=== PATIENT | female | born 1930 | race Caucasian/White ===

== ENCOUNTER → 2017-03-23 | Outpatient (CLI) | payer MEDICARE, OTHER ==
[~2017-03-23] MED LIST: ALEVE 220MG220 MG PO; ALEVE220 MG PO; ANTIBIOTIC; ASPIRIN 32325 MG/TA1 PO; ASPIRIN 32325 MG/TAB PO; ASPIRIN 81M81 MG/TA2 PO; BUFFERED ASPIR325 M2 PO; CELEBREX 200MG200 MG PO; EPA FISH OIL1000 MG PO; FERROUS SU325 MG/TAB PO; FISH OIL1000 MG PO; FOLIC ACID0.4 MG PO; IRON TABLETS325 MG PO; KLONOPIN 1MG1 MG PO; MICARDIS40 MG PO; NORCO 325 MG-51 TAB PO; NORCO 325 MG-7.1 TAB PO; RESTORIL30 MG PO; ROXICODONE 55 MG/TAB PO; TEGRETOL200 MG PO; TYLENOL W/COD1 UDTAB PO; ULTRAM 50MG TAB50 MG PO; VITAMIN B-12100 MCG PO; VITAMIN B12100 MCG PO; VITAMIN C500 MG PO
== END ==
LOC: COL.VAS 12:30
DX: G45.9 Transient cerebral ischemic attack, unspecified (principal); G45.1 Carotid artery syndrome (hemispheric)

== ENCOUNTER → 2018-04-26 | Outpatient (CLI) | payer MEDICARE, OTHER ==
[~2018-04-26] VITALS: Ht 167.6 cm; Wt 61.3 kg
[~2018-04-26] MED LIST changes: +ASPIRIN E.C. 8181 MG PO
[2018-04-26 13:09] VITALS: BP 182/97; PULSE 59
[2018-04-26 14:15] VITALS: BP 185/95; PULSE 94
== END ==
LOC: COL.RAD 12:46
DX: M51.26 Other intervertebral disc displacement, lumbar region (principal)
CPT/HCPCS: J3301

== ENCOUNTER → 2018-05-15 | Outpatient (CLI) | payer MEDICARE, OTHER ==
[~2018-05-15] VITALS: Ht 167.6 cm; Wt 61.4 kg
[2018-05-15 14:00] VITALS: BP 186/96; PULSE 53
[2018-05-15 14:45] VITALS: BP 193/98; PULSE 57
== END ==
LOC: COL.RAD 13:19
DX: M51.26 Other intervertebral disc displacement, lumbar region (principal)
CPT/HCPCS: J3301

== ENCOUNTER 2018-07-14 18:54 | Emergency (ER) | payer MEDICARE, OTHER ==
[~2018-07-14] VITALS: Ht 167.6 cm; Wt 59.1 kg
[2018-07-14 19:00] VITALS: BP 214/98; TEMP 97
[2018-07-14 20:55] LABS: BASO % 0.4 % (0.0-2.0); EOS % 0.4 % (0-4.0); GRAN # 6.2 (1.4-6.5); GRAN % 76.5 % (42.2-75.2); HEMOGLOBIN 12.7 g/dl (12.5-16.0); MEAN CELL VOLUME 89 fl (80.0-100.0); MEAN CORPUSCULAR HEMOGLOBIN 31 pg (27.0-31.0); MEAN CORPUSCULAR HGB CONC 35 g/dl (33.0-37.0); MEAN PLATELET VOLUME 10.2 fl (7.4-10.4); MONO # 0.8 (0.1-0.6); MONO % 10.3 % (1.7-9.3); PLATELET COUNT 184 K/mm3 (130-400); RED BLOOD COUNT 4.14 M/mm3 (4.10-5.30); REDCELL DISTRIBUTION WIDTH-CV 12.2 % (11.5-14.5)
[2018-07-14 20:56] LABS: HEMATOCRIT 36.7 % (37.0-47.0)
[2018-07-14 21:06] LABS: ALBUMIN 4.2 gm/dL (3.5-5.0); BILIRUBIN,TOTAL 0.9 mg/dL (0.0-1.0); C-REACTIVE PROTEIN 0.6 mg/dL (0.0-0.9); CALCIUM 9.2 mg/dL (8.4-10.2); CREATININE, serum 0.54 mg/dL (0.52-1.25); POTASSIUM 3.6 mmol/L (3.4-5.0); TOTAL PROTEIN 7.7 gm/dL (6.4-8.2)
[2018-07-14 21:18] LABS: COLLECTION METHOD CLEAN CATCH
[2018-07-14 21:47] LABS: PH 6 (5-8); URINE APPEARANCE Clear; URINE BACTERIA None Seen /hpf; URINE BILIRUBIN Negative (NEGATIVE); URINE BLOOD 1+ (NEGATIVE); URINE COLOR Straw; URINE GLUCOSE Negative (NEGATIVE); URINE KETONE Negative (NEGATIVE); URINE LEUKOCYTE ESTERASE 2+ (NEGATIVE); URINE NITRATE Negative (NEGATIVE); URINE PROTEIN(semi-quant) Negative (NEGATIVE); URINE RBC 0-2 /hpf; URINE UROBILINOGEN Negative (NEGATIVE)
[2018-07-14] MEDS ORDERED: DULCOLAX STOOL100 MG PO (21:58)
[2018-07-14 22:04] VITALS: PULSE 61
== END 2018-07-14 22:04 | disposition home or self-care (01) ==
LOC: COL.ER 18:54
PROVIDERS: Emergency Medicine
DX: K56.41 Fecal impaction (principal); F17.210 Nicotine dependence, cigarettes, uncomplicated; Z79.82 Long term (current) use of aspirin

== ENCOUNTER 2018-07-28 17:23 | Inpatient (IN) | payer MEDICARE, OTHER ==
[~2018-07-28] VITALS: Ht 167.6 cm; Wt 57.0 kg
[~2018-07-28 17:23] MED LIST changes: +DULCOLAX STOOL100 MG PO
[2018-07-28 18:35] LABS: COLLECTION METHOD CLEAN CATCH
[2018-07-28 18:38] LABS: BASO % 0.3 % (0.0-2.0); GRAN # 5.6 (1.4-6.5); GRAN % 86.6 % (42.2-75.2); HEMOGLOBIN 12.7 g/dl (12.5-16.0); LYMPH # 0.4 (1.2-3.4); LYMPH % 6.6 % (20.0-51.0); MEAN CELL VOLUME 87 fl (80.0-100.0); MEAN CORPUSCULAR HEMOGLOBIN 31 pg (27.0-31.0); MEAN CORPUSCULAR HGB CONC 35 g/dl (33.0-37.0); MEAN PLATELET VOLUME 9.2 fl (7.4-10.4); MONO # 0.4 (0.1-0.6); MONO % 6.3 % (1.7-9.3); PLATELET COUNT 214 K/mm3 (130-400); RED BLOOD COUNT 4.15 M/mm3 (4.10-5.30); REDCELL DISTRIBUTION WIDTH-CV 12.1 % (11.5-14.5)
[2018-07-28 18:42] LABS: HEMATOCRIT 36.1 % (37.0-47.0); MUCOUS Present /lpf; PH 7 (5-8); URINE APPEARANCE Cloudy; URINE BACTERIA Rare /hpf; URINE BILIRUBIN Negative (NEGATIVE); URINE BLOOD Negative (NEGATIVE); URINE COLOR Yellow; URINE GLUCOSE Negative (NEGATIVE); URINE KETONE 1+ (NEGATIVE); URINE LEUKOCYTE ESTERASE Trace (NEGATIVE); URINE NITRATE Negative (NEGATIVE); URINE PROTEIN(semi-quant) 1+ (NEGATIVE); URINE UROBILINOGEN Negative (NEGATIVE)
[2018-07-28 18:45] LABS: PROTHROMBIN TIME 11.1 SECONDS (9.7-12.8)
[2018-07-28 18:49] LABS: ALANINE AMINOTRANSFERASE 27 U/L (9-52); ALBUMIN 4.3 gm/dL (3.5-5.0); ALKALINE PHOSPHATASE 75 U/L (50-136); ANION GAP 10 mmol/L (7-16); AST,SGOT 24 U/L (15-37); BILIRUBIN,TOTAL 0.7 mg/dL (0.0-1.0); BLOOD UREA NITROGEN 9 mg/dL (7-17); CALCIUM 9.3 mg/dL (8.4-10.2); CARBON DIOXIDE 24 mmol/L (22-30); CREATININE, serum 0.59 mg/dL (0.52-1.25); GLUCOSE 130 mg/dL (74-106); LIPASE 109 U/L (23-300); SODIUM 123 mmol/L (137-145)
[2018-07-28 19:00] LABS: TROPONIN-I < 0.012 ng/mL (0.000-0.034)
[2018-07-28 19:01] LABS: CHLORIDE 88 mmol/L (98-107)
[2018-07-28] MEDS ORDERED: EPITOL (22:21)
[2018-07-28 23:48] LABS: MAGNESIUM 1.8 mg/dL (1.6-2.3)
[2018-07-29] MEDS ORDERED: TEGRETOL X200 MG/TA1 PO (00:25)
[2018-07-29 01:30] LABS: TSH w REFLEX 2.13 uIU/mL (0.465-4.680)
[2018-07-29 01:47] VITALS: BP 110/76; PULSE 47; TEMP 97.7
[2018-07-29 03:03] LABS: CALCIUM 8.4 mg/dL (8.4-10.2); CREATININE, serum 0.55 mg/dL (0.52-1.25); POTASSIUM 3.5 mmol/L (3.4-5.0)
[2018-07-29 07:22] LABS: BASO % 0.4 % (0.0-2.0); EOS % 0.4 % (0-4.0); GRAN # 3.6 (1.4-6.5); GRAN % 69.5 % (42.2-75.2); HEMATOCRIT 37.1 % (37.0-47.0); HEMOGLOBIN 12.6 g/dl (12.5-16.0); LYMPH % 18.3 % (20.0-51.0); MEAN CELL VOLUME 90 fl (80.0-100.0); MEAN CORPUSCULAR HEMOGLOBIN 30 pg (27.0-31.0); MEAN CORPUSCULAR HGB CONC 34 g/dl (33.0-37.0); MEAN PLATELET VOLUME 10.1 fl (7.4-10.4); MONO # 0.6 (0.1-0.6); MONO % 11.2 % (1.7-9.3); PLATELET COUNT 208 K/mm3 (130-400); RED BLOOD COUNT 4.14 M/mm3 (4.10-5.30); REDCELL DISTRIBUTION WIDTH-CV 12.3 % (11.5-14.5)
[2018-07-29 07:38] LABS: CALCIUM 8.9 mg/dL (8.4-10.2); CREATININE, serum 0.54 mg/dL (0.52-1.25); POTASSIUM 3.7 mmol/L (3.4-5.0)
[2018-07-29 08:24] VITALS: BP 182/75; PULSE 52; TEMP 98
[2018-07-29 11:30] VITALS: BP 195/76; PULSE 58; TEMP 98
[2018-07-29 16:33] VITALS: BP 179/75; PULSE 95; TEMP 97.8
[2018-07-29 19:20] VITALS: BP 163/69; PULSE 64; TEMP 97.7
[2018-07-30 00:11] VITALS: BP 150/64; PULSE 54; TEMP 98.1
[2018-07-30 05:48] VITALS: BP 212/95; PULSE 62; TEMP 97.4
[2018-07-30 08:07] VITALS: BP 143/70; PULSE 67; TEMP 98.6
[2018-07-30 08:26] VITALS: BP 151/76; PULSE 65; TEMP 98
[2018-07-30 13:26] LABS: CALCIUM 9.5 mg/dL (8.4-10.2); CREATININE, serum 0.54 mg/dL (0.52-1.25); POTASSIUM 3.4 mmol/L (3.4-5.0)
== END 2018-07-30 15:46 | disposition home or self-care (01) | DRG 392 ==
LOC: COL.ER 17:23 → MEDICAL 20:24 → EDBEDREQ 20:33 → EDBEDREQTM 20:33 → EDBEDREQ 20:55 → MEDICAL 07-30 15:46
PROVIDERS: Emergency Medicine; Hospitalist; Nurse Practitioner Family
DX: K52.9 Noninfective gastroenteritis and colitis, unspecified (principal); E87.1 Hypo-osmolality and hyponatremia; E86.9 Volume depletion, unspecified; I16.0 Hypertensive urgency; Z87.891 Personal history of nicotine dependence; E87.8 Other disorders of electrolyte and fluid balance, not elsewhere classified; G58.8 Other specified mononeuropathies
CPT/HCPCS: OP; 99222-AI; 99239; C9113; G0378; J0360; J1650; J2765; J7030; Q9967

== ENCOUNTER → 2019-10-15 | Outpatient (CLI) | payer MEDICARE, OTHER ==
[~2019-10-15] MED LIST changes: +EPITOL; +TEGRETOL X200 MG/TA1 PO
== END ==
LOC: COL.RAD 10:00
DX: E04.1 Nontoxic single thyroid nodule (principal); M19.011 Primary osteoarthritis, right shoulder; M19.012 Primary osteoarthritis, left shoulder; R07.89 Other chest pain
CPT/HCPCS: Q9967

== ENCOUNTER → 2019-10-25 | Outpatient (CLI) | payer MEDICARE, OTHER ==
[~2019-10-25] VITALS: Ht 167.6 cm; Wt 58.5 kg
[2019-10-25 12:23] VITALS: PULSE 62
== END ==
LOC: COL.RAD 11:15
DX: E04.1 Nontoxic single thyroid nodule (principal)
CPT/HCPCS: 32106

== ENCOUNTER 2020-05-18 21:39 | Inpatient (IN) | payer MEDICARE, OTHER ==
[~2020-05-18] VITALS: Ht 165.1 cm; Wt 58.4 kg
[2020-05-18 22:08] LABS: BASO # 0.1 (0.0-0.2); BASO % 0.5 % (0.0-2.0); EOS % 0.3 % (0-4.0); GRAN # 9.8 (1.4-6.5); GRAN % 88.3 % (42.2-75.2); HEMATOCRIT 37.7 % (37.0-47.0); HEMOGLOBIN 12.3 g/dl (12.5-16.0); LYMPH # 0.6 (1.2-3.4); LYMPH % 5.7 % (20.0-51.0); MEAN CELL VOLUME 89 fl (80.0-100.0); MEAN CORPUSCULAR HEMOGLOBIN 29 pg (27.0-31.0); MEAN CORPUSCULAR HGB CONC 33 g/dl (33.0-37.0); MEAN PLATELET VOLUME 10.3 fl (7.4-10.4); MONO # 0.5 (0.1-0.6); MONO % 4.8 % (1.7-9.3); PLATELET COUNT 199 K/mm3 (130-400); RED BLOOD COUNT 4.23 M/mm3 (4.10-5.30); REDCELL DISTRIBUTION WIDTH-CV 13.1 % (11.5-14.5)
[2020-05-18 22:12] LABS: PROTHROMBIN TIME 11.1 SECONDS (9.7-12.8)
[2020-05-18 22:15] LABS: PARTIAL THROMBOPLASTIN TIME 31.3 SECONDS (26.0-37.0)
[2020-05-18 22:19] LABS: COLLECTION METHOD CLEAN CATCH
[2020-05-18 22:20] LABS: ALANINE AMINOTRANSFERASE 13 U/L (4-34); ALBUMIN 4.3 gm/dL (3.5-5.0); ALKALINE PHOSPHATASE 99 U/L (50-136); ANION GAP 9 mmol/L (7-16); AST,SGOT 23 U/L (15-37); BILIRUBIN,TOTAL 1.2 mg/dL (0.0-1.0); BLOOD UREA NITROGEN 16 mg/dL (7-17); CALCIUM 9.4 mg/dL (8.4-10.2); CARBON DIOXIDE 24 mmol/L (22-30); CHLORIDE 101 mmol/L (98-107); GLUCOSE 136 mg/dL (74-106); LIPASE 160 U/L (23-300); POTASSIUM 4.2 mmol/L (3.4-5.0); SODIUM 134 mmol/L (137-145); TOTAL PROTEIN 8.7 gm/dL (6.4-8.2)
[2020-05-18 22:21] LABS: C-REACTIVE PROTEIN < 0.5 mg/dL (0.0-0.9)
[2020-05-18 22:27] LABS: ERYTHROCYTE SEDIMENTATION RATE 16 mm/hr (0-30)
[2020-05-18 22:27] LABS: MUCOUS Present /lpf; PH 7 (5-8); URINE APPEARANCE Hazy; URINE BACTERIA Rare /hpf; URINE BILIRUBIN Negative (NEGATIVE); URINE BLOOD 1+ (NEGATIVE); URINE COLOR Yellow; URINE GLUCOSE Negative (NEGATIVE); URINE KETONE Trace (NEGATIVE); URINE LEUKOCYTE ESTERASE 3+ (NEGATIVE); URINE NITRATE Negative (NEGATIVE); URINE PROTEIN(semi-quant) 1+ (NEGATIVE); URINE UROBILINOGEN Negative (NEGATIVE)
[2020-05-18 22:30] LABS: TROPONIN-I 0.029 ng/mL (0.000-0.035)
--- NOTE | 2020-05-18 23:45 | NUR ---
Received report from JUSTIN Burnett.
[2020-05-19] VITALS (497 sets, daily range): BP systolic 153–196; BP diastolic 86–127; PULSE 47–78; TEMP 97.8–98.6; O2SAT 88–100
--- NOTE | 2020-05-19 00:09 | NUR ---
Patient arrives to ICU room 5 via ED stretcher. Patient is able to ambulate with a walker and one-person assist to the ICU bed. Patient arrives wearing 2L via nasal cannula and satting 100% - she is also receiving nitroglycerine to a peripheral IV in the right wrist at 15 mcg/min or 4.5 mL/hr. Initial BP is 173/127; other vitals within normal limits. Patient denies the presence of chest pain, however, reports 10/10 left shoulder pain; she is unable to lift or extend the left arm without experiencing severe pain. No other complaints of discomfort noted. PRN roxicodone administered according to orders at 0122. BP at 0130 was 148/104. Oxygen weaned off at this time with saturation of 97% on room air. Jai aware of patient's arrival. Will continue to monitor.
[2020-05-19 04:24] LABS: BASO % 0.4 % (0.0-2.0); EOS % 0.3 % (0-4.0); GRAN # 5.3 (1.4-6.5); GRAN % 74.6 % (42.2-75.2); LYMPH # 1.1 (1.2-3.4); LYMPH % 15.8 % (20.0-51.0); MEAN CELL VOLUME 89 fl (80.0-100.0); MEAN CORPUSCULAR HEMOGLOBIN 29 pg (27.0-31.0); MEAN CORPUSCULAR HGB CONC 33 g/dl (33.0-37.0); MEAN PLATELET VOLUME 10.7 fl (7.4-10.4); MONO # 0.6 (0.1-0.6); MONO % 8.8 % (1.7-9.3); PLATELET COUNT 197 K/mm3 (130-400); RED BLOOD COUNT 3.75 M/mm3 (4.10-5.30)
[2020-05-19 04:25] LABS: HEMATOCRIT 33.4 % (37.0-47.0)
[2020-05-19 04:37] LABS: ALBUMIN 3.9 gm/dL (3.5-5.0); BILIRUBIN,TOTAL 1.1 mg/dL (0.0-1.0); CREATININE, serum 0.68 (0.52-1.25); TOTAL PROTEIN 7.8 gm/dL (6.4-8.2)
[2020-05-19 04:51] LABS: TROPONIN-I 6 HR POST INITIAL 0.551 ng/mL (0.000-0.034)
--- NOTE | 2020-05-19 05:02 | NUR ---
Notified Dr. Vergara of patient's upward trending and critical troponin. At this time, also notified Jai of Nitro drip on standby due to HR in the 50s, occasionally dipping to high 40s. Received orders to initiate low-dose heparin protocol and to notify cardiology in the AM with consult.
--- NOTE | 2020-05-19 08:20 | NUR ---
Called for cardiology consult.
--- NOTE | 2020-05-19 09:50 | NUR ---
at patient bedside. Will order stress test for tomorrow, needs to be NPO tonight at midnight. will add norvas to med list/ draw another troponin and aim to d/c nitro gtt.
--- NOTE | 2020-05-19 10:30 | NUR ---
at patient bedside. Once BP's stablize to sbp 160's and nitro gtt is off, can go upstairs. Putting in ortho consult for chronic shoulder pain.
--- NOTE | 2020-05-19 13:43 | NUR ---
Prison Guard met with patient to discuss discharge planning. Patient lives alone in [place] at [facility]. Patient states she has lived there about four years now. Patient states her two sons, Toby (ph#[phone]) and Nimesh (ph#[phone]) live locally. Patient states she has another son, Jefferson that lives in [place] and a daughter, Jaky that lives in [place]. Patient reports she also has a step son, Ron that lives in [place]. Patient states her son Nimesh is DPOA-HC but SW did not locate copy in EMR. Patient sees Dr. Barbosa for primary care and has medications delivered to her home from [facility]. Patient states she no longer drives. Patient has a cane and walker at home and also reports independence with ADLS. Patient states she plans to return home at discharge. KRISTIN contacted patient's son Nimesh at the above number but got a busy signal twice. KRISTIN contacted patient's other son, Toby who advised Nimesh is DPOA-HC but does not have a copy. Toby confirmed that the above number is Nimesh's number, but states Nimesh had a meeting this morning and possibly could not be reached. Toby states patient has been independent at home and that he and his go tow picker her groceries for her and check in on her as needed. KRISTIN contacted Dr. Barbosa's office and was advised they did not have copy of DPOA on file. KRISTIN will continue to follow.
--- NOTE | 2020-05-19 18:30 | NUR ---
Patient started complaining of chest pain that felt like jabbing in her left upper ribs. was notified and ordered a stat tropinin, EKG and gave SL nitro. Patients pain somewhat resolved and she described it has gas like cramps. Marlon read EKG and said patient can still go to medical floor.
--- NOTE | 2020-05-19 19:45 | NUR ---
Arrived to medical floor.
--- NOTE | 2020-05-19 20:05 | NUR ---
Patient brought up to room 351 on medical floor. JUSTIN Myers at bedside. Patient comfortable and no needs at this time.
--- NOTE | 2020-05-19 20:40 | NUR ---
Resting in bed. Assessment complete. Right base crackles otherwise clear. Heart sounds normal. Bowels active x4. Pulses present throughout. No edema noted. Heparin gtt infusing at 5.5ml/hr into right forearm without complications. Denies pain. Denies needs at this time. Call light in reach.
--- NOTE | 2020-05-19 21:40 | NUR ---
2140: Patient reporting severe left shoulder pain radiating to down left arm. Patient BP 190s/110s. Patient has PRN morphine. Will provide. Updated Dr. Mason at this time. Give morphine, no other orders. Clarified if Dr. Mason would like EKG or labs. No other orders. 2154: Morphine given by house supervisior. 0: Patient continues to have left shoulder/arm pain now guarding left chest stating pain has moved to left chest. States "I am dying, I am going to , help me, I am dying." 2216: Dr. Mason updated. Order for stat EKG placed and to call once complete. 2224: EKG complete. Dr. Mason updated. BP continues to be elevated. Dr. Mason aware. Orders for oral ativan 0.5mg now placed. 2229: House supervisior updated. 2234: Ativan given. 2250: Patient states "Let me go, I am ready. I do not want to be in pain anymore." Developed nausea at this time. Refusing nausea medication. 2300: Patient BP continues to be elevated. Treatment with hydralazine at this time. 2310: Denies chest pain. Continues to report severe left shoulder and left arm pain. Continues to state "I am dying, let me go." 2320: Patient beginning to fall asleep. Bed alarm in place. Will monitor. 0030: Used bed hay. Reported confusion to place and time. Reoriented. Provided with PRN oxycodone. 0130: Reports relief of pain. Will continue to monitor.
[2020-05-20] VITALS (11 sets, daily range): BP systolic 110–151; BP diastolic 57–86; PULSE 56–80; TEMP 97.4–98.3
--- NOTE | 2020-05-20 02:01 | NUR ---
Heparin gtt increased by 1.5. New dose 7ml/hr. Verified by Yaneth RN
--- NOTE | 2020-05-20 02:41 | NUR ---
Resting in bed. Asleep. Call light in reach. Will monitor.
--- NOTE | 2020-05-20 06:27 | NUR ---
Patient had episode of left shoulder pain radiating to left arm. Dr. Mason updated during situation. Otherwise uneventful night. Resting in bed this AM.
--- NOTE | 2020-05-20 06:53 | NUR ---
Report given to JUSTIN Brown
--- NOTE | 2020-05-20 08:45 | NUR ---
Patient is going down for Nuc. med stress test at this time
[2020-05-20 11:57] LABS: CALCIUM 9.4 mg/dL (8.4-10.2); CREATININE, serum 0.56 (0.52-1.25); MAGNESIUM 2.1 mg/dL (1.6-2.3); POTASSIUM 3.6 mmol/L (3.4-5.0)
[2020-05-20 12:36] LABS: TROPONIN-I 0.38 ng/mL (0.000-0.035)
--- NOTE | 2020-05-20 13:00 | NUR ---
HepXa 0.27, no change in rate, continue TRA 7ml/hr (700 units), next level check at 2000
--- NOTE | 2020-05-20 16:02 | NUR ---
We have moved the patient from room 351 to 355 as she was having more disorientation this afternoon
--- NOTE | 2020-05-20 20:30 | NUR ---
Initial shift assessment done- forgetful at times- trying to get out of bed-- reminded she needs to call for assistance- Tele on, has heparin drip at 7cc/hr ,will have Hepxa at 2000 tonight,, close to [facility], denies chest pain/SOB tonight-- would like a pain pill before bed to help with overall aches and to help sleep-
[2020-05-21] VITALS (404 sets, daily range): BP systolic 120–190; BP diastolic 68–111; PULSE 58–93; TEMP 97.6–98.3; O2SAT 69–100
--- NOTE | 2020-05-21 05:39 | NUR ---
Awake, did sign consent for her heart cath today- VSS, NPO, heparin drip continues at 7cc/hr- did sleep for just 3-4hrs last night- Up to bathroom with assist.
--- NOTE | 2020-05-21 06:05 | NUR ---
Dr. Landry notified of AM EKG results.
[2020-05-21 06:52] LABS: HEMATOCRIT 37.1 % (37.0-47.0); HEMOGLOBIN 12.5 g/dl (12.5-16.0); MEAN CELL VOLUME 89 fl (80.0-100.0); MEAN CORPUSCULAR HEMOGLOBIN 30 pg (27.0-31.0); MEAN CORPUSCULAR HGB CONC 34 g/dl (33.0-37.0); MEAN PLATELET VOLUME 12.1 fl (7.4-10.4); PLATELET COUNT 181 K/mm3 (130-400); RED BLOOD COUNT 4.17 M/mm3 (4.10-5.30); REDCELL DISTRIBUTION WIDTH-CV 13.3 % (11.5-14.5)
[2020-05-21 07:00] LABS: INR 1.1 (0.8-3.0); PROTHROMBIN TIME 12.7 SECONDS (9.7-12.8)
[2020-05-21 07:02] LABS: CALCIUM 9.4 mg/dL (8.4-10.2); CREATININE, serum 0.82 (0.52-1.25); POTASSIUM 3.6 mmol/L (3.4-5.0)
[2020-05-21 07:03] LABS: PARTIAL THROMBOPLASTIN TIME 52.7 SECONDS (26.0-37.0)
--- NOTE | 2020-05-21 08:35 | NUR ---
SEE MERGE DOCUMENTATION FOR MEDICATION ADMINISTRATION TIMES AND INTRA/POST PROCEDURE SEDATION ASSESSMENTS.
--- NOTE | 2020-05-21 08:36 | NUR ---
Assessment completed, alert/oriented but forgetful and is easily reoriented, denies any chest pain or discomfort, heart RRR/ SR on tele, lungs CTA/ no resp.difficulty noted and denies SOA or dyspnea, Heparin gtt stopped at this time as RN from [facility] is here to take patient down for her [facility], consent signed and patient has been NPO
--- NOTE | 2020-05-21 10:52 | NUR ---
Pt very teary eyed and stating she didn't know she would have to stay the night. States she wouldn't have had the procedure knowing this. Apologized to patient and paged Dr Burgess to come speak with her. on unit and told this, did not go talk to pt at this time.
[2020-05-22] VITALS (146 sets, daily range): BP systolic 139–160; BP diastolic 72–87; PULSE 63–80; TEMP 97–98.7; O2SAT 52–100
[2020-05-22 05:45] LABS: BASO % 0.4 % (0.0-2.0); EOS # 0.1 (0.0-0.7); EOS % 0.6 % (0-4.0); GRAN # 6.5 (1.4-6.5); GRAN % 75.9 % (42.2-75.2); HEMATOCRIT 36.1 % (37.0-47.0); HEMOGLOBIN 12.2 g/dl (12.5-16.0); LYMPH # 0.9 (1.2-3.4); LYMPH % 9.9 % (20.0-51.0); MEAN CELL VOLUME 87 fl (80.0-100.0); MEAN CORPUSCULAR HEMOGLOBIN 29 pg (27.0-31.0); MEAN CORPUSCULAR HGB CONC 34 g/dl (33.0-37.0); MEAN PLATELET VOLUME 10.3 fl (7.4-10.4); MONO # 1.1 (0.1-0.6); MONO % 13.1 % (1.7-9.3); PLATELET COUNT 219 K/mm3 (130-400); RED BLOOD COUNT 4.16 M/mm3 (4.10-5.30)
[2020-05-22 05:52] LABS: CREATININE, serum 0.55 (0.52-1.25); POTASSIUM 3.7 mmol/L (3.4-5.0)
--- NOTE | 2020-05-22 09:17 | NUR ---
at bedside. Says patient is good to discharge once cardiology says ok and sees her today.
[2020-05-22] MEDS ORDERED: NORVASC 10MG10 MG PO (09:20)
[2020-05-22] MEDS ORDERED: PLAVIX 75MG TAB75 MG PO (09:20)
[2020-05-22] MEDS ORDERED: PRAVACHOL 20MG20 MG PO (09:21)
--- NOTE | 2020-05-22 13:30 | NUR ---
Server Administrator was notified that patient is ready for discharge today. KRISTIN met with patient who is insistent that she is going home and is ready to leave now. KRISTIN spoke with patient about Home Health Services. Patient states she has had [facility] in the past and is open to their services again. KRISTIN contacted Marissa at [facility] and faxed referral. Marissa advised they can accept referral. KRISTIN faxed discharge orders. KRISTIN contacted patient's son, Toby to provide update. No additional needs at this time.
== END 2020-05-22 12:40 | disposition home or self-care (01) | DRG 249 ==
LOC: COL.ER 21:39 → ICU 22:57 → MEDICAL 05-19 16:12 → ICU 05-21 10:11
PROVIDERS: Emergency Medicine; Internal Medicine
PROC: 02703DZ Dilation of Coronary Artery, One Artery with Intraluminal Device, Percutaneous Approach (ICD-10-PCS; principal; 2020-05-21)
PROC: 4A023N7 Measurement of Cardiac Sampling and Pressure, Left Heart, Percutaneous Approach (ICD-10-PCS; 2020-05-21)
PROC: B2111ZZ Fluoroscopy of Multiple Coronary Arteries using Low Osmolar Contrast (ICD-10-PCS; 2020-05-21)
DX: I21.4 Non-ST elevation (NSTEMI) myocardial infarction (principal); N39.0 Urinary tract infection, site not specified; I25.10 Atherosclerotic heart disease of native coronary artery without angina pectoris; M19.012 Primary osteoarthritis, left shoulder; I10 Essential (primary) hypertension; I16.0 Hypertensive urgency; K59.00 Constipation, unspecified; Z87.891 Personal history of nicotine dependence
CPT/HCPCS: 99223-AI; 99231-AI; 99232-AI; 99239; A9500; C1769; C1876; C1887; J0360; J0696; J1644; J2250; J2270; J2785; J3010; Q9967

== ENCOUNTER 2020-05-25 11:16 | Emergency (ER) | payer MEDICARE, OTHER ==
[~2020-05-25] VITALS: Ht 167.6 cm; Wt 58.2 kg
[~2020-05-25 11:16] MED LIST changes: +NORVASC 10MG10 MG PO; +PLAVIX 75MG TAB75 MG PO; +PRAVACHOL 20MG20 MG PO; +VITAMIN B12 781 TAB PO; -VITAMIN B12100 MCG PO
[2020-05-25 11:25] VITALS: TEMP 97.5
[2020-05-25] MEDS ORDERED: NORVASC 10MG10 MG PO (11:48)
[2020-05-25] MEDS ORDERED: PLAVIX 75MG TAB75 MG PO (11:49)
[2020-05-25] MEDS ORDERED: PRAVACHOL 20MG20 MG PO (11:51)
[2020-05-25] MEDS ORDERED: XANAX 1MG1 MG PO (11:52)
[2020-05-25 12:32] LABS: BASO % 0.2 % (0.0-2.0); EOS % 0.2 % (0-4.0); GRAN % 82.9 % (42.2-75.2); HEMOGLOBIN 11.1 g/dl (12.5-16.0); LYMPH # 0.6 (1.2-3.4); LYMPH % 5.9 % (20.0-51.0); MEAN CELL VOLUME 89 fl (80.0-100.0); MEAN CORPUSCULAR HEMOGLOBIN 30 pg (27.0-31.0); MEAN CORPUSCULAR HGB CONC 34 g/dl (33.0-37.0); MEAN PLATELET VOLUME 10.2 fl (7.4-10.4); MONO # 1.1 (0.1-0.6); MONO % 10.4 % (1.7-9.3); PLATELET COUNT 256 K/mm3 (130-400); RED BLOOD COUNT 3.73 M/mm3 (4.10-5.30); REDCELL DISTRIBUTION WIDTH-CV 13.1 % (11.5-14.5)
[2020-05-25 12:33] LABS: ALBUMIN 3.9 gm/dL (3.5-5.0); BILIRUBIN,TOTAL 1.1 mg/dL (0.0-1.0); CREATININE, serum 0.88 (0.52-1.25); POTASSIUM 3.4 mmol/L (3.4-5.0); TOTAL PROTEIN 7.8 gm/dL (6.4-8.2)
[2020-05-25 15:06] VITALS: BP 141/89; PULSE 60
== END 2020-05-25 15:06 | disposition home or self-care (01) ==
LOC: COL.ER 11:16
PROVIDERS: Nurse Practitioner
DX: R10.9 Unspecified abdominal pain (principal); K59.00 Constipation, unspecified; I25.10 Atherosclerotic heart disease of native coronary artery without angina pectoris; I10 Essential (primary) hypertension; Z95.5 Presence of coronary angioplasty implant and graft; Z79.82 Long term (current) use of aspirin
CPT/HCPCS: J2270; J7040; Q9967

== ENCOUNTER 2020-06-27 15:56 | Emergency (ER) | payer MEDICARE, OTHER ==
[~2020-06-27] VITALS: Ht 167.6 cm; Wt 58.2 kg
[~2020-06-27 15:56] MED LIST changes: +XANAX 1MG1 MG PO
[2020-06-27 15:58] VITALS: TEMP 97.5
[2020-06-27 16:18] LABS: BASO % 0.5 % (0.0-2.0); EOS % 0.1 % (0-4.0); GRAN # 7.1 (1.4-6.5); GRAN % 82.6 % (42.2-75.2); LYMPH # 0.7 (1.2-3.4); LYMPH % 8.2 % (20.0-51.0); MEAN CELL VOLUME 87 fl (80.0-100.0); MEAN CORPUSCULAR HEMOGLOBIN 29 pg (27.0-31.0); MEAN CORPUSCULAR HGB CONC 33 g/dl (33.0-37.0); MEAN PLATELET VOLUME 9.6 fl (7.4-10.4); MONO # 0.7 (0.1-0.6); MONO % 8.2 % (1.7-9.3); PLATELET COUNT 228 K/mm3 (130-400); RED BLOOD COUNT 3.79 M/mm3 (4.10-5.30); REDCELL DISTRIBUTION WIDTH-CV 12.9 % (11.5-14.5)
[2020-06-27 16:27] LABS: PROTHROMBIN TIME 11.6 SECONDS (9.7-12.8)
[2020-06-27 16:30] LABS: PARTIAL THROMBOPLASTIN TIME 30.7 SECONDS (26.0-37.0)
[2020-06-27 16:34] LABS: ALANINE AMINOTRANSFERASE 15 U/L (4-34); ALBUMIN 4.2 gm/dL (3.5-5.0); ALKALINE PHOSPHATASE 92 U/L (50-136); ANION GAP 10 mmol/L (7-16); AST,SGOT 27 U/L (15-37); BILIRUBIN,TOTAL 0.9 mg/dL (0.0-1.0); BLOOD UREA NITROGEN 21 mg/dL (7-17); C-REACTIVE PROTEIN 0.8 mg/dL (0.0-0.9); CALCIUM 9.4 mg/dL (8.4-10.2); CARBON DIOXIDE 26 mmol/L (22-30); CHLORIDE 94 mmol/L (98-107); CREATININE, serum 0.85 (0.52-1.25); GLUCOSE 169 mg/dL (74-106); LIPASE 186 U/L (23-300); POTASSIUM 3.4 mmol/L (3.4-5.0); SODIUM 129 mmol/L (137-145); TOTAL PROTEIN 8.1 gm/dL (6.4-8.2)
[2020-06-27 16:43] LABS: TROPONIN-I < 0.012 ng/mL (0.000-0.035)
[2020-06-27 18:30] VITALS: BP 121/72; PULSE 75
== END 2020-06-27 18:30 | disposition short-term general hospital (02) ==
LOC: COL.ER 15:56
PROVIDERS: Emergency Medicine
DX: R07.89 Other chest pain (principal); M25.512 Pain in left shoulder; I10 Essential (primary) hypertension; I25.10 Atherosclerotic heart disease of native coronary artery without angina pectoris; Z98.890 Other specified postprocedural states; Z95.9 Presence of cardiac and vascular implant and graft, unspecified; Z79.82 Long term (current) use of aspirin
CPT/HCPCS: J1644; J2405; J3010